=== PATIENT | female | born 1945 | race Caucasian/White ===

== ENCOUNTER 2019-06-29 18:57 | Emergency (ER) | payer MEDICARE, OTHER ==
[~2019-06-29] VITALS: Ht 165.1 cm; Wt 86.4 kg
[2019-06-29 19:09] VITALS: Ht 165.1 cm; Wt 86.4 kg
[2019-06-29] MEDS ORDERED: XARELTO10 MG PO (19:13)
[2019-06-29] MEDS ORDERED: POTASSIUM CHLO10 ME1 PO (19:14)
[2019-06-29] MEDS ORDERED: DIOVAN40 MG PO (19:14)
[2019-06-29] MEDS ORDERED: SKELAXIN800 MG PO (21:00)
[2019-06-29 21:16] VITALS: BP 180/93
== END 2019-06-29 21:17 | disposition home or self-care (01) ==
LOC: D.ER 18:57
DX: S16.1XXA Strain of muscle, fascia and tendon at neck level, initial encounter (principal); V89.0XXA Person injured in unspecified motor-vehicle accident, nontraffic, initial encounter; S09.90XA Unspecified injury of head, initial encounter